=== PATIENT | male | born 1990 | race Caucasian/White ===

== ENCOUNTER 2016-11-08 02:20 | Emergency (ER) | payer OTHER, SELFPAY ==
[~2016-11-08] VITALS: Ht 180.3 cm; Wt 88.5 kg
[2016-11-08] MEDS ORDERED: HYDROmorphone HCL 1 MG/ML SYRINGE (J1170) IV ONE ×2 (05:15→06:00)
[2016-11-08 06:04] VITALS: BP 137/78
[2016-11-08] MEDS ORDERED: NORCOTAB PO (06:05)
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
--- NOTE | 2016-11-10 21:00 | ED PDOC ---
Post-Departure Follow-Up ncog faxed formal report of right tib / fib for fu Sunshine Mukherjee MD Nov 10, 2016 21:00
== END 2016-11-08 07:17 | disposition home or self-care (01) ==
LOC: M ED 04:23
DX: S82.844A Nondisplaced bimalleolar fracture of right lower leg, initial encounter for closed fracture (principal); X50.1XXA Overexertion from prolonged static or awkward postures, initial encounter; Y92.410 Unspecified street and highway as the place of occurrence of the external cause; Y93.01 Activity, walking, marching and hiking; Y99.9 Unspecified external cause status
CPT/HCPCS: 73590; 96374; 96376; 99282; J1170

== ENCOUNTER 2016-11-12 12:21 | Day surgery (SDC) | payer OTHER ==
[~2016-11-12 12:21] MED LIST: NORCOTAB PO
[2016-11-12] MEDS ORDERED: HYDROmorphone HCL 1 MG/ML SYRINGE (J1170) ONE (12:22)
[2016-11-12] MEDS ORDERED: ROPIvacaine 0.5% 30 ML INJECTION (J2795) ONE (12:22)
[2016-11-12] MEDS ORDERED: dexameTHASONE 10 MG/1 ML VIAL PRES.FREE (J1100) ONE (12:22)
[2016-11-12] MEDS ORDERED: MORPHINE 2 MG/ML 1ML SYRINGE As Ordered ONE (15:51)
[2016-11-12] MEDS: MORPHINE 2 MG/ML 1ML SYRINGE IV SCH ×3 (16:00→17:01)
[2016-11-12] MEDS ORDERED: LR 1,000 ML IV SCH ×2 (16:00→19:45)
[2016-11-12] MEDS ORDERED: ceFAZolin 1GM INJ (J0690) As Ordered ONE (16:03)
[2016-11-12] MEDS ORDERED: MIDAZOLAM INJ 2 MG/2 ML VIAL (J2250) As Ordered ONE (16:43)
[2016-11-12] MEDS ORDERED: fentaNYL 250 MCG/5 ML INJECTION (J3010) As Ordered ONE (16:43)
[2016-11-12] MEDS ORDERED: PROPOFOL 200 MG/20 ML VIAL As Ordered ONE (16:44)
[2016-11-12] MEDS ORDERED: LIDOCAINE 2% INJ 100 MG/5 ML SDV (FOR ANES.) As Ordered ONE (16:44)
[2016-11-12] MEDS ORDERED: MORPHINE 2 MG/ML 1ML SYRINGE IV SCH (17:00)
[2016-11-12] MEDS ORDERED: CLINDAMYCIN 600 MG/50 ML PREMIX BAG As Ordered ONE (17:03)
[2016-11-12] MEDS ORDERED: ROCURONIUM BROMIDE 50 MG/5 ML VIAL As Ordered ONE (17:38)
[2016-11-12] MEDS ORDERED: ONDANSETRON 4MG/2ML VIAL (J2405) As Ordered ONE (17:48)
[2016-11-12] MEDS ORDERED: ePHEDrine SULFATE 25 MG/5 ML(5MG/ML) SYRINGE As Ordered ONE (18:02)
[2016-11-12] MEDS ORDERED: GLYCOPYRROLATE INJ 0.2 MG/ML 2 ML VIAL As Ordered ONE (18:57)
[2016-11-12] MEDS ORDERED: NEOSTIGMINE 1MG/ML 5 ML SYRINGE (J2710) As Ordered ONE (18:57)
[2016-11-12] MEDS ORDERED: BUPIVACAINE/EPIN 0.25% 30 ML VIAL As Ordered ONE (19:08)
--- NOTE | 2016-11-12 19:11 | REP ---
Clinical: Status post fixation. Technique: Intraoperative fluoroscopic imaging. Findings: Multiple intraoperative fluoroscopic images demonstrate the patient to be status post open reduction and fixation for bimalleolar ankle fractures. Satisfactory reduction. Total fluoroscopic time 33 seconds. Impression: Satisfactory open reduction and fixation for bimalleolar fractures Signed by Frederick Mejia MD 11/12/2016 07:03 P
[2016-11-12] MEDS ORDERED: HYDROmorphone HCL 1 MG/ML SYRINGE (J1170) As Ordered ONE (19:34)
[2016-11-12] MEDS: HYDROmorphone HCL 1 MG/ML SYRINGE (J1170) IV PRN ×9 (19:35→20:31)
[2016-11-12] MEDS ORDERED: PERCOCET 5MG/325MG TAB As Ordered ONE (19:42)
[2016-11-12] MEDS: PERCOCET 5MG/325MG TAB PO PRN ×2 (19:44→20:06)
[2016-11-12] MEDS ORDERED: ONDANSETRON 4MG/2ML VIAL (J2405) IV PRN (19:45)
[2016-11-12] MEDS ORDERED: fentaNYL 100 MCG/2 ML INJECTION (J3010) IV PRN (19:45)
[2016-11-12] MEDS ORDERED: NS 1,000 ML IV SCH (20:15)
[2016-11-12] MEDS ORDERED: MORPHINE 2 MG/ML 1ML SYRINGE IV PRN (20:15)
[2016-11-12] MEDS ORDERED: PERCOCET 5MG/325MG TAB PO PRN (20:15)
--- NOTE | 2016-11-12 23:28 | RO ---
DATE OF PROCEDURE: 11/12/2016 PREPROCEDURE DIAGNOSIS: Right ankle trimalleolar fracture and subluxation. POSTPROCEDURE DIAGNOSIS: Right ankle trimalleolar fracture and subluxation. OPERATIVE PROCEDURE: Right ankle fracture, open reduction, internal fixation. SURGEON: Thaddeus Sun MD HOME CARE RN: JOSELYN Bradshaw ANESTHESIA: General. ESTIMATED BLOOD LOSS: Less than 50 mL REPLACED: No blood administered. SPECIMENS: None. COMPLICATIONS: None. IMPLANTS: Synthes distal fibula locking plate and two medial cannulated screws. BRIEF HISTORY: I received this patient can reconditioner via consultation with my partners with a known history of fracture/subluxation of the right ankle which was reduced yesterday or the day before after being sent out of the emergency department on Thursday. I met with the patient in the preoperative holding area and discussed with him and confirmed with him the operative plan and he understood and agreed to go forward with me with open reduction, internal fixation, and the consent was updated appropriately. DESCRIPTION OF OPERATION: The patient was identified in the preoperative holding area by name, medical record number and date of . The surgical site was marked in consultation with the patient who was evaluated by anesthesia. When he was ready he was brought back to the operative suite on a gurney and transferred to the OR table. At this point, general anesthesia was induced without complication. The plaster splint was removed from the right lower extremity. There was ecchymosis extending from the toes to just below the level of the knee. There were no fracture blisters and swelling was moderate, not severe, and not felt to be too excessive to go forward with open reduction, internal fixation and so the right lower extremity was next sterilely prepped and draped in the usual fashion with a tourniquet applied to right upper thigh. Prior to beginning the procedure, a final time out was performed and all in the room agreed. He was given IV antibiotics prior to incision. I began the procedure by exsanguinating the right lower extremity with an Esmarch tourniquet inflated on the right upper thigh, trying to get to 250 mmHg. I next established a standard lateral incision centered over the fibula fracture, dissecting down through the skin and subcutaneous fat protecting local neurovascular structures, identified the fracture site and reduced it, then secured in place using a single lag screw with satisfactory compression, confirming satisfactory reduction by direct visualization and multiple fluoroscopic views. Next, an appropriately sized Synthes distal fibula locking plate was applied and secured proximally and distally and by direct visualization and multiple fluoroscopic views, AP, mortise, oblique and lateral; satisfactory reduction of the fibula was confirmed. I next turned my attention to the medial malleolar fracture, making a longitudinal dissection centered over the medial malleolus fracture preserving local neurovascular structures. I identified the somewhat oblique fracture site, reduced this using a pointed reduction clamp and secured it in place with two cannulated partially threaded screws confirming satisfactory reduction and position of the hardware by direct visualization and multiple fluoroscopic views. At this point, a dorsiflexion external rotation stress test as well as a hook test were negative indicating a stable ankle with stable syndesmosis and fixation. The wounds were next copiously irrigated and closed in layers. Sterile dressings and a well-padded splint were applied. The tourniquet was deflated. Brisk return of capillary refill to all his toes was appreciated and the patient was brought out of anesthesia and transferred to the post anesthesia care unit. PLAN: The plan at this time is he will be discharged to home if he is stable this evening to followup with the orthopedic group locally in 10 days. Nonweightbearing on the right lower extremity. MILA
[2016-11-13] VITALS: BP 115/65
[2016-11-13] MEDS: PERCOCET 5MG/325MG TAB PO PRN ×2 (01:08→06:09)
[2016-11-13 06:00] VITALS: BP 120/65
[2016-11-13] MEDS ORDERED: PERC5TAB6 PO (06:54)
[2016-11-13] MEDS ORDERED: ASPI325T PO (06:54)
== END 2016-11-13 09:10 | disposition home or self-care (01) ==
LOC: M SDC 12:21 → M MS5PR 22:51 → M SDC 11-13 09:10
PROVIDERS: ATTEND Orthopaedic Surgery
DX: S82.851A Displaced trimalleolar fracture of right lower leg, initial encounter for closed fracture (principal); S93.01XA Subluxation of right ankle joint, initial encounter; X58.XXXA Exposure to other specified factors, initial encounter; Y92.89 Other specified places as the place of occurrence of the external cause; Y93.89 Activity, other specified; Y99.8 Other external cause status; F17.210 Nicotine dependence, cigarettes, uncomplicated
CPT/HCPCS: 27822; 73610; C1776; J0690; J1100; J1170; J2250; J2405; J2710; J2795; J3010

== ENCOUNTER 2017-01-31 17:18 | Emergency (ER) | payer OTHER ==
[~2017-01-31] VITALS: Ht 180.3 cm; Wt 92.1 kg
[~2017-01-31 17:18] MED LIST changes: +ASPI325T PO; +PERC5TAB6 PO
[2017-01-31] MEDS ORDERED: NORC1TAB4 PO (17:29)
[2017-01-31] MEDS ORDERED: PERCOCET 5MG/325MG TAB PO ONE (18:45)
[2017-01-31] MEDS ORDERED: TYLE325C PO (19:13)
[2017-01-31 19:30] VITALS: BP 128/78
--- NOTE | 2017-02-01 08:56 | REP ---
Left ring finger: There is an oblique nondisplaced fracture in the shaft of the proximal phalange . There is no dislocation. Signed by Travis Chen MD 02/01/2017 08:47 A
== END 2017-01-31 19:31 | disposition home or self-care (01) ==
LOC: M ED 17:38
DX: S62.645A Nondisplaced fracture of proximal phalanx of left ring finger, initial encounter for closed fracture (principal); W01.0XXA Fall on same level from slipping, tripping and stumbling without subsequent striking against object, initial encounter; Y92.89 Other specified places as the place of occurrence of the external cause; Y93.89 Activity, other specified; Y99.8 Other external cause status; F17.200 Nicotine dependence, unspecified, uncomplicated

== ENCOUNTER 2017-05-06 13:51 | Emergency (ER) | payer OTHER ==
[~2017-05-06] VITALS: Ht 180.3 cm; Wt 90.9 kg
[~2017-05-06 13:51] MED LIST changes: +NORC1TAB4 PO; +PERC5TAB12 PO; -PERC5TAB6 PO; +TYLE325C PO
[2017-05-06] MEDS ORDERED: IBUP-1022 PO (13:57)
[2017-05-06] MEDS ORDERED: ADACEL/BOOSTRIX VACCINE (DIPHTH/PERTUSS/ACELL/TETANUS)0.5ML SYR (90715) IM ONE (15:45)
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
[2017-05-06 16:34] VITALS: BP 132/74
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
== END 2017-05-06 16:37 | disposition home or self-care (01) ==
LOC: M ED 13:51
DX: S06.9X9A Unspecified intracranial injury with loss of consciousness of unspecified duration, initial encounter (principal); S00.83XA Contusion of other part of head, initial encounter; Y04.8XXA Assault by other bodily force, initial encounter; Y92.410 Unspecified street and highway as the place of occurrence of the external cause; Y93.89 Activity, other specified; Y99.8 Other external cause status; F17.210 Nicotine dependence, cigarettes, uncomplicated; Z88.0 Allergy status to penicillin

== ENCOUNTER 2018-06-08 12:26 | Emergency (ER) | payer OTHER ==
[2018-06-08 13:29] LABS: BASO # 0.1 10^3/uL (0.0-0.2); BASO % 0.9 % (0.0-1.0); EOS # 0.2 10^3/uL (0.0-0.50); EOS % 1.6 % (0.0-3.0); HEMATOCRIT 46.3 % (42.0-52.0); HEMOGLOBIN 15.9 g/dl (13.5-17.5); IMMATURE GRANULOCYTE % 0.2 % (0-3.0); LYMPH # 3.5 10^3/uL (1.5-6.5); LYMPH % 37.8 % (24.0-44.0); MEAN CORPUSCULAR HEMOGLOBIN 31.9 pg (27.0-33.0); MEAN CORPUSCULAR HGB CONC 34.3 g/dl (32.0-36.5); MEAN CORPUSCULAR VOLUME 92.8 fl (80.0-96.0); MONO % 10.6 % (0.0-5.0); NEUTROPHILS # 4.5 10^3/uL (1.8-7.7); NEUTROPHILS % 48.9 % (36.0-66.0); PLATELET COUNT, AUTOMATED 253 10^3/uL (150-450); RED BLOOD COUNT 4.99 10^6/uL (4.30-6.10); RED CELL DISTRIBUTION WIDTH 12.1 % (11.5-14.5); WHITE BLOOD COUNT 9.2 10^3/uL (4.0-10.0)
[2018-06-08 14:05] LABS: ALBUMIN 3.8 GM/DL (3.2-5.2); ALBUMIN/GLOBULIN RATIO 1.12 (1.00-1.93); ALKALINE PHOSPHATASE 102 U/L (45-117); ALT/SGPT 198 U/L (12-78); AMYLASE 73 U/L (25-115); ANION GAP 12 MEQ/L (8-16); AST/SGOT 176 U/L (7-37); BILIRUBIN,DIRECT 0.1 MG/DL (0.0-0.2); BILIRUBIN,TOTAL 0.3 MG/DL (0.2-1.0); BLOOD UREA NITROGEN 8 MG/DL (7-18); CALCIUM LEVEL 8.1 MG/DL (8.5-10.1); CARBON DIOXIDE LEVEL 24 MEQ/L (21-32); CHLORIDE LEVEL 106 MEQ/L (98-107); CREATININE FOR GFR 1.04 MG/DL (0.70-1.30); GLOMERULAR FILTRATION RATE > 60.0 (>60); GLUCOSE, FASTING 106 MG/DL (70-100); LIPASE 199 U/L (73-393); POTASSIUM SERUM 4.2 MEQ/L (3.5-5.1); SODIUM LEVEL 142 MEQ/L (136-145); TOTAL PROTEIN 7.2 GM/DL (6.4-8.2)
[2018-06-08] MEDS: GI COCKTAIL 50ML BTL(HYOSCYAMINE/MAALOX/LIDOCAINE VISCOUS)(1:3:1) PO (14:14)
[2018-06-09 09:48] LABS: HEPATITIS B SURFACE ANTIGEN NEGATIVE (NEGATIVE)
[2018-06-09 10:16] LABS: HEPATITIS B CORE ANTIBODY IGM NEGATIVE (NEGATIVE)
[2018-06-09 10:18] LABS: HEPATITIS A ANTIBODY IGM NEGATIVE (NEGATIVE)
== END 2018-06-08 15:19 | disposition home or self-care (01) ==
LOC: M ED 12:26
DX: K29.00 Acute gastritis without bleeding (principal); K76.0 Fatty (change of) liver, not elsewhere classified; R79.89 Other specified abnormal findings of blood chemistry; F17.200 Nicotine dependence, unspecified, uncomplicated; Z88.0 Allergy status to penicillin
CPT/HCPCS: 76705

== ENCOUNTER → 2019-07-18 | Outpatient (REF) | payer OTHER ==
[~2019-07-18] MED LIST changes: +ASPI-1 PO; -ASPI325T PO; +CARA1TAB6 PO; +HYDR-3715 PO; +IBUP-1022 PO; -NORC1TAB4 PO; +NORC1TAB7 PO; -NORCOTAB PO; +PROT1TAB2 PO
== END ==
LOC: M LAB REF 16:14
PROVIDERS: ATTEND Nurse Practitioner Family
DX: J02.9 Acute pharyngitis, unspecified (principal)

== ENCOUNTER 2020-11-08 05:13 | Emergency (ER) | payer OTHER, SELFPAY ==
[~2020-11-08] VITALS: Ht 180.3 cm; Wt 95.5 kg
--- NOTE | 2020-11-08 07:26 | REPVR ---
PROCEDURE INFORMATION: Exam: XR Right Foot Exam date and time: 11/08/2020 6:12 AM Age: 30 years old Clinical indication: Other: Injury TECHNIQUE: Imaging protocol: XR Right foot. Views: 3 or more views. COMPARISON: No relevant prior studies available. FINDINGS: Bones/joints: There are acute, variably comminuted and displaced fractures through the 3rd, 4th and 5th metatarsal shafts. The 3rd metatarsal shaft fracture involves the mid to distal aspect and is mildly laterally angulated. The 4th metatarsal shaft fracture involves the distal aspect and is mildly medially angulated. The 5th metatarsal shaft fracture involves the mid to distal aspect and is mildly medially angulated. None appears to involve an articular surface. No other acute fracture is identified. The joint spaces are normally aligned. The medial hallux sesamoid is noted to be bipartite. Hardware is noted in the distal tibia and fibula. Soft tissues: There is associated soft tissue swelling. IMPRESSION: Acute fractures of the 3rd, 4th and 5th metatarsals. Electronically signed by: Cornelio Rahman On 11/08/2020 07:25:38 AM
[2020-11-08] MEDS ORDERED: NS 1,000 ML IV ONE (07:35)
[2020-11-08] MEDS ORDERED: ACETAMINOPHEN 500 MG TAB PO ONE (07:45)
[2020-11-08] MEDS ORDERED: HYDR-4571 PO (08:43)
[2020-11-08 10:00] VITALS: BP 97/47
== END 2020-11-08 10:10 | disposition home or self-care (01) ==
LOC: M ED 05:13
DX: S92.331A Displaced fracture of third metatarsal bone, right foot, initial encounter for closed fracture (principal); S92.341A Displaced fracture of fourth metatarsal bone, right foot, initial encounter for closed fracture; S92.351A Displaced fracture of fifth metatarsal bone, right foot, initial encounter for closed fracture; X58.XXXA Exposure to other specified factors, initial encounter; Y92.89 Other specified places as the place of occurrence of the external cause; R00.0 Tachycardia, unspecified; F17.200 Nicotine dependence, unspecified, uncomplicated; Z88.0 Allergy status to penicillin

== ENCOUNTER → 2022-03-25 | Outpatient (REF) | payer OTHER ==
[~2022-03-25] MED LIST changes: +HYDR-4571 PO
== END ==
LOC: M LAB REF 21:05
PROVIDERS: ATTEND Physician Assistant
DX: J02.9 Acute pharyngitis, unspecified (principal)

== ENCOUNTER → 2022-10-28 | Outpatient (REF) | payer OTHER ==
[2022-10-28 18:59] LABS: BASO # 0.1 10^3/uL (0.0-0.2); BASO % 0.9 % (0.0-1.0); EOS # 0.2 10^3/uL (0.0-0.5); EOS % 2.3 % (0.0-3.0); HEMATOCRIT 45.3 % (42.0-52.0); LYMPH # 2.8 10^3/uL (1.5-5.0); LYMPH % 30.4 % (24.0-44.0); MEAN CORPUSCULAR HEMOGLOBIN 30.3 pg (27.0-33.0); MEAN CORPUSCULAR HGB CONC 33.1 g/dl (32.0-36.5); MEAN CORPUSCULAR VOLUME 91.5 fl (80.0-96.0); MONO # 0.8 10^3/uL (0.0-0.8); MONO % 8.9 % (2.0-8.0); NEUTROPHILS # 5.3 10^3/uL (1.5-8.5); NEUTROPHILS % 57.2 % (36.0-66.0); PLATELET COUNT, AUTOMATED 322 10^3/uL (150-450); RED BLOOD COUNT 4.95 10^6/uL (4.30-6.10); WHITE BLOOD COUNT 9.3 10^3/uL (4.0-10.0)
[2022-10-28 19:15] LABS: ALBUMIN 3.9 G/DL (3.2-5.2); ALKALINE PHOSPHATASE 75 U/L (46-116); ALT/SGPT 94 U/L (7.0-40); AST/SGOT 30 U/L (<34); BILIRUBIN,TOTAL 0.4 MG/DL (0.3-1.2); BLOOD UREA NITROGEN 11 MG/DL (9-23); CALCIUM LEVEL 9.4 MG/DL (8.5-10.1); CARBON DIOXIDE LEVEL 27 MMOL/L (20-31); CHLORIDE LEVEL 104 MMOL/L (98-107); CHOLESTEROL LEVEL 211 MG/DL (<200); CHOLESTEROL RISK RATIO 4.28 (<5); GLOMERULAR FILTRATION RATE > 60.0 (>60); GLUCOSE, FASTING 96 MG/DL (60-100); HDL CHOLESTEROL 49.2 MG/DL (>40); LDL CHOLESTEROL 104.8 MG/DL (<100); NON-HDL-C 162 MG/DL; POTASSIUM SERUM 4.4 MMOL/L (3.5-5.1); SODIUM LEVEL 140 MMOL/L (136-145); THYROID STIMULATING HORMONE 0.788 uIU/ML (0.55-4.78); TOTAL PROTEIN 6.8 G/DL (5.7-8.2); TRIGLYCERIDES LEVEL 285 MG/DL (<150)
[2022-10-28 20:30] LABS: HEMOGLOBIN A1c 5.2 % (4.0-6.0)
== END ==
LOC: M LAB REF 17:02
PROVIDERS: ATTEND Nurse Practitioner Family
DX: E55.9 Vitamin D deficiency, unspecified (principal); Z68.31 Body mass index [BMI] 31.0-31.9, adult

== ENCOUNTER 2022-12-22 02:30 | Emergency (ER) | payer OTHER ==
[~2022-12-22] VITALS: Ht 180.3 cm; Wt 105.3 kg
[2022-12-22 03:13] LABS: BASO # 0.1 10^3/uL (0.0-0.2); BASO % 0.8 % (0.0-1.0); EOS # 0.3 10^3/uL (0.0-0.5); EOS % 3.1 % (0.0-3.0); HEMATOCRIT 42.7 % (42.0-52.0); HEMOGLOBIN 15.2 g/dl (13.5-17.5); INR 0.83; LYMPH # 3.4 10^3/uL (1.5-5.0); LYMPH % 31.3 % (24.0-44.0); MEAN CORPUSCULAR HEMOGLOBIN 31.7 pg (27.0-33.0); MEAN CORPUSCULAR HGB CONC 35.6 g/dl (32.0-36.5); MEAN CORPUSCULAR VOLUME 89.1 fl (80.0-96.0); MONO # 0.8 10^3/uL (0.0-0.8); MONO % 7.3 % (2.0-8.0); NEUTROPHILS # 6.2 10^3/uL (1.5-8.5); NEUTROPHILS % 57.2 % (36.0-66.0); PLATELET COUNT, AUTOMATED 280 10^3/uL (150-450); PROTHROMBIN TIME 11.6 SECONDS (12.5-14.5); RED BLOOD COUNT 4.79 10^6/uL (4.30-6.10); WHITE BLOOD COUNT 10.9 10^3/uL (4.0-10.0)
[2022-12-22 03:26] LABS: CK-MB VALUE MASS < 1.0 NG/ML (<3.6); LIPASE 40 U/L (12-53)
[2022-12-22 03:32] LABS: ALBUMIN 3.9 G/DL (3.2-5.2); ALKALINE PHOSPHATASE 76 U/L (46-116); ALT/SGPT 56 U/L (7.0-40); AST/SGOT 38 U/L (<34); BILIRUBIN,DIRECT < 0.1 MG/DL (<0.4); BILIRUBIN,TOTAL 0.2 MG/DL (0.3-1.2); BLOOD UREA NITROGEN 14 MG/DL (9-23); CALCIUM LEVEL 8.6 MG/DL (8.5-10.1); CARBON DIOXIDE LEVEL 25 MMOL/L (20-31); CHLORIDE LEVEL 105 MMOL/L (98-107); CPK CREATINE PHOSPHOKINASE 158 U/L (46-171); CREATININE FOR GFR 0.96 MG/DL (0.70-1.30); GLOMERULAR FILTRATION RATE > 60.0 (>60); GLUCOSE, FASTING 129 MG/DL (60-100); MB/CK RELATIVE INDEX 0.63 (< OR =4); POTASSIUM SERUM 3.8 MMOL/L (3.5-5.1); SODIUM LEVEL 138 MMOL/L (136-145); TOTAL PROTEIN 6.3 G/DL (5.7-8.2)
[2022-12-22 05:08] LABS: CK-MB VALUE MASS < 1.0 NG/ML (<3.6)
[2022-12-22 05:13] LABS: CPK CREATINE PHOSPHOKINASE 156 U/L (46-171); MB/CK RELATIVE INDEX 0.64 (< OR =4)
[2022-12-22 06:00] VITALS: BP 116/77
== END 2022-12-22 06:17 | disposition home or self-care (01) ==
LOC: M ED 02:30
DX: R07.89 Other chest pain (principal); R00.2 Palpitations; R06.02 Shortness of breath; Z87.891 Personal history of nicotine dependence; Z88.1 Allergy status to other antibiotic agents

== ENCOUNTER → 2022-12-31 | Outpatient (REF) | payer OTHER ==
[2022-12-31 18:16] LABS: ALKALINE PHOSPHATASE 73 U/L (46-116); ALT/SGPT 101 U/L (7.0-40); AST/SGOT 45 U/L (<34); BILIRUBIN,DIRECT 0.2 MG/DL (<0.4); BILIRUBIN,TOTAL 0.7 MG/DL (0.3-1.2); TOTAL PROTEIN 7.1 G/DL (5.7-8.2)
== END ==
LOC: M LAB REF 16:34
PROVIDERS: ATTEND Nurse Practitioner Family
DX: Z11.9 Encounter for screening for infectious and parasitic diseases, unspecified (principal); E55.9 Vitamin D deficiency, unspecified; R74.01 Elevation of levels of liver transaminase levels

== ENCOUNTER 2024-08-07 18:51 | Emergency (ER) | payer OTHER, SELFPAY ==
[2024-08-07 18:58] VITALS: BP 147/96; TEMP 98.6; O2SAT 98
== END 2024-08-07 20:04 | disposition left against medical advice (07) ==
LOC: M ED 18:51
DX: R07.9 Chest pain, unspecified (principal); F17.290 Nicotine dependence, other tobacco product, uncomplicated; Z88.1 Allergy status to other antibiotic agents; Z53.9 Procedure and treatment not carried out, unspecified reason